=== PATIENT | male | born 1965 | race Native Hawaiian/Other Pacific Islander ===

== ENCOUNTER 2018-04-07 22:54 | Emergency (ER) | payer SELFPAY ==
[2018-04-08 00:18] LABS: Basophils % (Auto) 0.1 % (0.0-1.8); Eosinophils # (Auto) 0.1 K/mm3 (0.0-0.4); Eosinophils % (Auto) 0.4 % (0.0-4.3); Hematocrit 53.4 % (35.5-45.6); Hemoglobin 18.1 gm/dl (11.8-15.2); Lymphocytes % (Auto) 6.5 % (13.4-35.0); Mean Corpuscular HGB Conc 34 % (32-34); Mean Corpuscular Hemoglobin 30 pg (28-32); Mean Corpuscular Volume 89 fl (84-94); Monocytes # (Auto) 1.2 K/mm3 (0.0-0.8); Monocytes % (Auto) 7.6 % (0.0-7.3); Platelet Count 237 K/mm3 (140-440); Red Blood Count 5.97 M/mm3 (3.65-5.03); Red Cell Distribution Width 13.3 % (13.2-15.2)
[2018-04-08 00:36] LABS: Alanine Aminotransferase 29 units/L (7-56); Albumin 5.5 g/dL (3.9-5); BUN/Creatinine Ratio 21; Bilirubin,Direct 0.4 mg/dL (0-0.2); Blood Urea Nitrogen 21 mg/dL (9-20); Calcium 10.7 mg/dL (8.4-10.2); Hemolysis Index 9
[2018-04-08] MEDS ORDERED: TYLENOL PO ONE (00:53)
[2018-04-08] MEDS ORDERED: LIDOCAINE VISCOUS 2% PO ONE (00:53)
[2018-04-08] MEDS ORDERED: ZOFRAN ODT PO ONE (00:53)
[2018-04-08] MEDS ORDERED: ALUM-MAG HYDROX-SIMETH 200-200-20MG/5ML PO ONE (00:53)
--- NOTE | 2018-04-08 01:20 | Emergency Department Report ---
ED N/V/D HPI - General Chief complaint: Abdominal Pain Stated complaint: N/V/D; CP Time Seen by Provider: 04/08/18 00:53 Source: patient, EMS Mode of arrival: Wheelchair Limitations: Physical Limitation - History of Present Illness Initial comments: Patient had some chicken today with extra spicy sauce. Afterwards, patient had vomiting and diarrhea. Hasn't been able to keep water down. No one is sick at home. No recent travel or antibiotics. - Related Data Home Medications Medication Instructions Recorded Confirmed Last Taken Omeprazole [Prilosec] 40 mg PO QDAY 07/14/13 07/14/13 07/11/13 Previous Rx's Medication Instructions Recorded Last Taken Type Ondansetron [Zofran Odt] 4 mg PO Q6HR PRN #10 tab.rapdis 04/08/18 Unknown Rx Allergies Allergy/AdvReac Type Severity Reaction Status Date / Time No Known Allergies Allergy Verified 07/14/13 11:15 ED Review of Systems ROS: Stated complaint: N/V/D; CP Other details as noted in HPI Comment: All other systems reviewed and negative Gastrointestinal: vomiting, diarrhea ED Past Medical Hx - Past Medical History Hx GERD: Yes - Social History Smoking Status: Never Smoker Substance Use Type: None - Medications Home Medications: Home Medications Medication Instructions Recorded Confirmed Last Taken Type Omeprazole [Prilosec] 40 mg PO QDAY 07/14/13 07/14/13 07/11/13 History Ondansetron [Zofran Odt] 4 mg PO Q6HR PRN #10 tab.rapdis 04/08/18 Unknown Rx ED Physical Exam - General Limitations: Language Barrier General appearance: alert, in no apparent distress - Head Head exam: Present: atraumatic, normocephalic - Eye Eye exam: Present: normal appearance - ENT ENT exam: Present: mucous membranes moist - Neck Neck exam: Present: normal inspection - Respiratory Respiratory exam: Present: normal lung sounds bilaterally. Absent: respiratory distress - Cardiovascular Cardiovascular Exam: Present: regular rate, normal rhythm. Absent: systolic murmur, diastolic murmur, rubs, gallop - GI/Abdominal GI/Abdominal exam: Present: soft, normal bowel sounds. Absent: tenderness - Rectal Rectal exam: Present: deferred - Extremities Exam Extremities exam: Present: normal inspection - Back Exam Back exam: Present: normal inspection - Neurological Exam Neurological exam: Present: alert, oriented X3 - Psychiatric Psychiatric exam: Present: normal affect, normal mood - Skin Skin exam: Present: warm, dry, intact, normal color. Absent: rash ED Course Vital Signs 04/07/18 23:10 Temperature 98.5 F Pulse Rate 99 H Respiratory 20 Rate Blood Pressure 131/77 O2 Sat by Pulse 100 Oximetry ED Medical Decision Making - Lab Data Result diagrams: 04/07/18 23:36 04/07/18 23:36 - Medical Decision Making 52-year-old male with past medical history of hypertension, GERD that presents to the ER with vomiting and diarrhea. Advised to stable. Patient is well- appearing. Lab work shows signs of dehydration. After the patient IV fluids, but he felt comfortable with oral rehydration. He was given Zofran and a GI cocktail. Patient felt improved on reevaluation. I explained to them the clear liquid diet. He'll be given a prescription of Zofran to go home with. Patient is cleared for discharge. - Differential Diagnosis gastritis versus enteritis versus gastroenteritis versus food poisoning Critical care attestation.: If time is entered above; I have spent that time in minutes in the direct care of this critically ill patient, excluding procedure time. ED Disposition Clinical Impression: Food poisoning, Dehydration Disposition: DC-01 TO HOME OR SELFCARE Is pt being admited?: No Does the pt Need Aspirin: No Condition: Stable Instructions: Dehydration (ED), Food Poisoning (ED) Prescriptions: Ondansetron [Zofran Odt] 4 mg PO Q6HR PRN #10 tab.rapdis PRN Reason: Nausea Referrals: PRIMARY CARE,MD [Primary Care Provider] - 3-5 Days
[2018-04-08 02:03] VITALS: BP 137/79
== END 2018-04-08 02:04 | disposition home or self-care (01) ==
LOC: ED 22:54
DX: T62.91XA Toxic effect of unspecified noxious substance eaten as food, accidental (unintentional), initial encounter (principal); E86.0 Dehydration; K21.9 Gastro-esophageal reflux disease without esophagitis; Y92.89 Other specified places as the place of occurrence of the external cause
CPT/HCPCS: 36415; 80048; 80074; 85025; 93005; 93010; 99284; Q0162